=== PATIENT | male | born 1975 | race Hispanic/Latino ===

== ENCOUNTER 2020-07-27 07:58 | Outpatient (CLI) | payer OTHER | END 2020-07-27 07:59 | disposition home or self-care (01) | LOC: BICRAD 07:58 | PROVIDERS: ATTEND Family Medicine | DX: M25.552 Pain in left hip (principal) ==

== ENCOUNTER 2020-08-10 09:50 | Outpatient (CLI) | payer OTHER ==
[2020-08-10] MEDS ORDERED: Gadobenate Dimeglumine 529 MG/1 ML (20ML VIAL) ONE (10:30)
[2020-08-10] MEDS ORDERED: Lidocaine 1% PF 10 ML AMP ONE (10:30)
[2020-08-10] MEDS ORDERED: EPINEPHrine 1 MG/ML AMP ONE (10:30)
[2020-08-10] MEDS ORDERED: Iopamidol 300 61% 50 ML VIAL FS ONE (10:30)
== END 2020-08-10 09:51 | disposition home or self-care (01) ==
LOC: RAD 09:50
PROVIDERS: ATTEND Orthopaedic Surgery
DX: M25.552 Pain in left hip (principal); M76.892 Other specified enthesopathies of left lower limb, excluding foot; M16.12 Unilateral primary osteoarthritis, left hip
CPT/HCPCS: 27093; A9577; J0171; J2001; Q9967

== ENCOUNTER 2021-06-14 10:04 | Emergency (ER) | payer BC, OTHER ==
[2021-06-14] MEDS ORDERED: HYDROcodone/Acetaminophen 7.5/325 mg Tablet ONE (11:36)
== END 2021-06-14 12:20 | disposition home or self-care (01) ==
LOC: ERS 10:04
DX: S92.332A Displaced fracture of third metatarsal bone, left foot, initial encounter for closed fracture (principal); S92.342A Displaced fracture of fourth metatarsal bone, left foot, initial encounter for closed fracture; S92.352A Displaced fracture of fifth metatarsal bone, left foot, initial encounter for closed fracture; I10 Essential (primary) hypertension; E11.9 Type 2 diabetes mellitus without complications; M19.90 Unspecified osteoarthritis, unspecified site; W20.8XXA Other cause of strike by thrown, projected or falling object, initial encounter; Z79.899 Other long term (current) drug therapy

== ENCOUNTER 2022-04-10 11:50 | Outpatient (CLI) | payer BC | END 2022-04-10 11:51 | disposition home or self-care (01) | LOC: SCSMRI 11:50 | PROVIDERS: ATTEND Family Medicine | DX: M51.16 Intervertebral disc disorders with radiculopathy, lumbar region (principal); M47.26 Other spondylosis with radiculopathy, lumbar region; M47.817 Spondylosis without myelopathy or radiculopathy, lumbosacral region; M47.815 Spondylosis without myelopathy or radiculopathy, thoracolumbar region; M24.28 Disorder of ligament, vertebrae; M51.37 Other intervertebral disc degeneration, lumbosacral region; M25.78 Osteophyte, vertebrae; M48.07 Spinal stenosis, lumbosacral region | CPT/HCPCS: 72148 ==

== ENCOUNTER 2022-04-12 07:52 | Outpatient (CLI) | payer BC | END 2022-04-12 07:53 | disposition home or self-care (01) | LOC: BICRAD 07:52 | PROVIDERS: ATTEND Family Medicine | DX: M51.16 Intervertebral disc disorders with radiculopathy, lumbar region (principal); M47.817 Spondylosis without myelopathy or radiculopathy, lumbosacral region | CPT/HCPCS: 72100 ==